=== PATIENT | male | born 1955 | race Caucasian/White ===

== ENCOUNTER → 2018-11-25 13:53 | Outpatient (CLI) | payer MEDICARE, BC ==
[2015-04-07 13:18] VITALS: BMI 24.5
[~2018-11-25 13:53] MED LIST: APAP325 MG PO; CALCIUM CITRATE1 TAB PO; PREDNISONE PO
== END | disposition home or self-care (01) ==
LOC: D.RAD 13:53
PROVIDERS: ATTEND Internal Medicine Nephrology
DX: T85.691S Other mechanical complication of intraperitoneal dialysis catheter, sequela (principal); K59.00 Constipation, unspecified

== ENCOUNTER 2019-03-05 05:26 | Day surgery (SDC) | payer MEDICARE, BC ==
[~2019-03-05] VITALS: Ht 175.3 cm; Wt 63.5 kg
[2019-03-05 05:47] LABS: HEMOGLOBIN 12.6 g/dL (13.5-17.5); MCH 30.3 pg (26.0-34.0); MCHC 34.1 g/dL (31.0-37.0); MCV 88.9 fL (80.0-100.0); MEAN PLATELET VOLUME 8.8 fL (7.4-10.4); RBC 4.16 10x6/uL (4.20-6.10); RDW 15.1 % (11.5-14.5); WBC 7.6 10x3/uL (4.8-10.8)
[2019-03-05 06:17] LABS: ANION GAP 18.1 mmol/L (8-16); CALCIUM 9.6 mg/dL (8.5-10.1); CARBON DIOXIDE 25.7 mmol/L (21.0-32.0); CREATININE - SERUM 11.7 mg/dL (0.6-1.3); POTASSIUM - SERUM 4.8 mmol/L (3.5-5.1)
[2019-03-05] MEDS ORDERED: NORVASC10 MG PO (07:15)
[2019-03-05] MEDS ORDERED: METOPROLOL TART50 MG PO (07:15)
[2019-03-05] MEDS ORDERED: PHOSLO667 MG PO (07:16)
[2019-03-05] MEDS ORDERED: ULTRAM50 MG PO (07:16)
[2019-03-05] MEDS ORDERED: MULTI-DAY VITAM1 TAB PO (07:17)
[2019-03-05] MEDS ORDERED: FERROUS SULFAT325 MG PO (07:17)
[2019-03-05] MEDS ORDERED: HYDROXYZINE HCL50 MG PO (07:17)
[2019-03-05 07:30] VITALS: Ht 175.3 cm; Wt 63.5 kg
--- NOTE | 2019-03-05 15:20 | OP ---
PATIENT NAME: JUNIOR GUILLEN MEDICAL RECORD: [id number] :57 LOCATION:D[facility] ADMISSION DATE: SURGEON: JULIANNA LIN MD DATE OF OPERATION: 03/05/2019 PREOPERATIVE DIAGNOSIS: Malfunctioning peritoneal dialysis catheter. POSTOPERATIVE DIAGNOSES: Malfunctioning peritoneal dialysis catheter, with intra-abdominal adhesions. PROCEDURE: Laparoscopic peritoneal dialysis catheter revision. SURGEON: Julianna Lin MD RESPOOLER: None. BLOOD LOSS: Minimal. ANESTHESIA: General. COMPLICATIONS: None. The risks, possible complications and alternatives to the procedure were explained to the patient. He elects to proceed. Discussion specifically included, but was not limited to, bleeding requiring an emergency reoperation, as well as the possible need for catheter revisions or replacements in the future. OPERATIVE COURSE: The patient was conveyed to the operating room electively on 03/05/2019. General anesthesia was induced by the anesthesia staff. The abdomen was sterilely prepped and draped. A small skin incision was accomplished in the left upper quadrant. A Veress needle was inserted through the skin incision into the peritoneal cavity. CO2 insufflation was begun. Once a sufficient pneumoperitoneum had been achieved, a 5-mm trocar was inserted in the left upper quadrant. Under direct internal vision utilizing a television camera, a 5-mm trocar was inserted in the left mid abdomen and another 5-mm trocar was inserted in the left lower quadrant. During insertion of the Veress needle and all trocars, there appeared to have been no injury to the bowels, any intraperitoneal or retroperitoneal structures. Most of the adhesions were right-sided adhesions. Utilizing the endoscopic scissors, I began to take down some of these adhesions, which were mainly grade II adhesions. There was no damage to the bowel. I grasped the peritoneal dialysis catheter. It was wrapped up in the right upper quadrant in some retroperitoneal fat and likely some omentum as well. I was able to free it up and then place it down so that it aimed toward the pelvis. I was able to irrigate through the catheter easily and also aspirate normal saline. All trocars were removed and the abdomen desufflated. The skin incisions were closed with interrupted intracuticular 3-0 Vicryls. Benzoin and Steri-Strips were applied. The patient was then extubated and conveyed to the post-anesthesia care unit where he was in stable condition. OPERATIVE REPORT [id number] JUNIOR GUILLEN TRANSINT:[id number] Voice Confirmation ID: [id number] DOCUMENT ID: [id number] JULIANNA LIN MD at 1520 CC: ARNALDO PERSON MD and Hattie HARRIS [id number] DICTATION DATE: 03/05/19 1004 CARDIOGRAPH OPERATOR: 03/05/19 1155 [facility] SDC 03/05/19 [place] [id number] [place] [id number]
== END 2019-03-05 11:50 | disposition home or self-care (01) ==
LOC: D.OPS 05:26
PROVIDERS: Anesthesiology; ATTEND Surgery
DX: T85.611A Breakdown (mechanical) of intraperitoneal dialysis catheter, initial encounter (principal); Z01.812 Encounter for preprocedural laboratory examination

== ENCOUNTER → 2019-04-07 09:03 | Outpatient (CLI) | payer MEDICARE, BC ==
[2019-03-05 07:30] VITALS: BMI 20.7
[~2019-04-07 09:03] MED LIST changes: +FERROUS SULFAT325 MG PO; +HYDROXYZINE HCL50 MG PO; +METOPROLOL TART50 MG PO; +MULTI-DAY VITAM1 TAB PO; +NORVASC10 MG PO; +PHOSLO667 MG PO; +ULTRAM50 MG PO
== END | disposition home or self-care (01) ==
LOC: D.NM 09:03
PROVIDERS: ATTEND Internal Medicine Nephrology
DX: R11.2 Nausea with vomiting, unspecified (principal); R10.9 Unspecified abdominal pain; R63.4 Abnormal weight loss